=== PATIENT | male | born 1960 | race Caucasian/White ===

== ENCOUNTER 2018-04-03 12:04 | Day surgery (SDC) | payer OTHER ==
[2018-04-03] MEDS ORDERED: PROPOFOL 20 ML (15:44)
== END 2018-04-03 17:36 | disposition home or self-care (01) ==
LOC: GIL 12:04
DX: R12 Heartburn (principal); D12.4 Benign neoplasm of descending colon; K29.70 Gastritis, unspecified, without bleeding; E11.9 Type 2 diabetes mellitus without complications; E78.5 Hyperlipidemia, unspecified; I25.10 Atherosclerotic heart disease of native coronary artery without angina pectoris; I10 Essential (primary) hypertension
CPT/HCPCS: 43239; 82962; 88305; 88312